=== PATIENT | male | born 1955 | race Caucasian/White ===

== ENCOUNTER 2018-01-09 13:25 | Emergency (ER) | payer SELFPAY ==
[~2018-01-09] VITALS: Ht 193 cm; Wt 103.0 kg
[2018-01-09] MEDS ORDERED: ATIVAN1 MG PO (13:40)
[2018-01-09] MEDS ORDERED: GABAPENTIN300 MG PO (13:41)
== END 2018-01-09 13:49 | disposition home or self-care (01) ==
LOC: ED 13:25
DX: L97.529 Non-pressure chronic ulcer of other part of left foot with unspecified severity (principal); L97.519 Non-pressure chronic ulcer of other part of right foot with unspecified severity

== ENCOUNTER 2018-07-03 15:34 | Emergency (ER) | payer OTHER ==
[~2018-07-03] VITALS: Ht 193 cm; Wt 103.0 kg
[~2018-07-03 15:34] MED LIST: ATIVAN1 MG PO; GABAPENTIN300 MG PO
[2018-07-03] MEDS ORDERED: AUGMENTIN 875-1 EACH PO (15:52)
== END 2018-07-03 16:52 | disposition home or self-care (01) ==
LOC: ED 15:34
DX: L08.9 Local infection of the skin and subcutaneous tissue, unspecified (principal); F43.10 Post-traumatic stress disorder, unspecified; I10 Essential (primary) hypertension; E11.9 Type 2 diabetes mellitus without complications; Z88.5 Allergy status to narcotic agent; Z79.899 Other long term (current) drug therapy
CPT/HCPCS: 90471; 90715; 99283-25

== ENCOUNTER 2018-09-19 21:29 | Emergency (ER) | payer OTHER ==
[~2018-09-19] VITALS: Ht 193 cm; Wt 95.2 kg
[~2018-09-19 21:29] MED LIST changes: +AUGMENTIN 875-1 EACH PO
--- OUTSIDE RECORDS SUMMARY | 2018-09-19 21:32 | XMS ---
PreManage Notification: MATTY VITAL Security Stuntman Events No recent Security Events currently on file CRITERIA MET - [facility] CARE PROVIDERS G[facility]el Constantino [facility] Provider Current Health PHONE: [phone] [facility] Current Group PCP PHONE: Unknown Rosalind Sharp Mental Health Provider Current PHONE: [phone] Brant has no Care Guidelines for this patient. EAlistairD. VISIT COUNT (12 MO.) [address] [facility] TOTAL 3 NOTE: Visits indicate total known visits. ED/UCC VISIT TRACKING (12 MO.) 09/19/2018 21:30 [facility] TYPE: Emergency COMPLAINT: - SYNCOPE 07/03/2018 15:35 [facility] TYPE: Emergency COMPLAINT: - L FOOT POSS INFECTION DIAGNOSES: - Post-traumatic stress disorder, unspecified - Local infection of the skin and subcutaneous tissue, unspecified - Type 2 diabetes mellitus without complications - Other correction (current) drug therapy - Allergy status to narcotic agent status - Essential (primary) hypertension 01/09/2018 13:[address] [facility] [place] TYPE: Emergency COMPLAINT: - BILAT FOOT WOUND CHECK/MSE TO CLINIC DIAGNOSES: - Non-pressure chronic ulcer of other part of left foot with unspecified severity - Non-pressure chronic ulcer of other part of right foot with unspecified severity INPATIENT VISIT TRACKING (12 MO.) No inpatient visits to display in this time frame [email or web address]
[2018-09-19] MEDS ORDERED: CHLORPROMAZINE10 MG PO (22:45)
[2018-09-19] MEDS ORDERED: GLUCOPHAGE500 MG PO (22:45)
[2018-09-19] MEDS ORDERED: SERTRALINE HCL25 MG PO (23:00)
[2018-09-19] MEDS ORDERED: ASPIRIN81 MG PO (23:00)
[2018-09-19] MEDS ORDERED: METOPROLOL SUCC25 MG PO (23:01)
[2018-09-19] MEDS ORDERED: VICTOZA 2-0.6 MG/0.1 SUB-Q (23:02)
[2018-09-19] MEDS ORDERED: FOLIC ACID0.4 MG PO (23:02)
[2018-09-19] MEDS ORDERED: AMBIEN5 MG PO (23:03)
[2018-09-19] MEDS ORDERED: ATIVAN0.5 MG PO (23:03)
[2018-09-20] MEDS ORDERED: SERTRALINE HCL100 MG PO (01:57)
[2018-09-20] MEDS ORDERED: CHLORPROMAZINE25 MG PO (01:58)
[2018-09-20] MEDS ORDERED: CHLORPROMAZINE200 MG PO (01:59)
--- NOTE | 2018-09-20 07:56 | EKG ---
[facility] [address] [place] Espinoza [place] [address] Signed Atrial-sensed ventricular-paced rhythm Abnormal ECG No previous ECGs available Confirmed by DONALDO CHI MD ([id number] on 09/20/2018 7:56:00 AM Electronically Signed By: DONALDO CHI MD 09/20/18 0756 PATIENT NAME: MATTY VITAL Electrocardiogram DATE OF : 55 PHYSICIAN: DONALDO CHI MD REPORT #: [id number] REPORT IS CONFIDENTIAL AND NOT TO BE RELEASED WITHOUT AUTHORIZATION
== END 2018-09-20 01:34 | disposition home or self-care (01) ==
LOC: ED 21:29
DX: I95.1 Orthostatic hypotension (principal); F43.10 Post-traumatic stress disorder, unspecified; I10 Essential (primary) hypertension; E11.9 Type 2 diabetes mellitus without complications; Z88.5 Allergy status to narcotic agent; Z79.899 Other long term (current) drug therapy; Z79.84 Long term (current) use of oral hypoglycemic drugs; Z79.82 Long term (current) use of aspirin
CPT/HCPCS: 80053; 81001; 84484; 85025; 93005; 93010; 96360; 96361; 99284-25; J7030

== ENCOUNTER → 2019-03-12 | Emergency (ER) | payer OTHER ==
[~2019-03-12] MED LIST changes: +AMBIEN5 MG PO; +ASPIRIN81 MG PO; +ATIVAN0.5 MG PO; +CHLORPROMAZINE10 MG PO; +CHLORPROMAZINE200 MG PO; +CHLORPROMAZINE25 MG PO; +FOLIC ACID0.4 MG PO; +GLUCOPHAGE500 MG PO; +KEFLEX500 MG PO; +METOPROLOL SUCC25 MG PO; +SERTRALINE HCL100 MG PO; +SERTRALINE HCL25 MG PO; +VICTOZA 2-0.6 MG/0.1 SUB-Q
--- OUTSIDE RECORDS SUMMARY | 2019-03-12 11:16 | XMS ---
PreManage Notification: MATTY VITAL Security Account Officer Events No recent Security Events currently on file CRITERIA MET - [facility] [place] - PDMP CARE PROVIDERS Huseyin Mcguire [facility] 09/21/2018-Current PHONE: Unknown Gricel Constantino Behavioral Mental Health Provider Current Health PHONE: [phone] [facility] Current Group PCP PHONE: Unknown Rosalind Sharp Mental Health Provider Current PHONE: [phone] Guidelines Source: [employer] [place] Guidelines Date: 09/20/2018 Care Coordination: Currently receives services from [employer]\T\#39;s.\T\nbsp; Please contact with any mental health concerns.\T\nbsp; Care History Medical/Surgical 09/21/2018 [facility] - Patient is currently established with [facility]. If patient is seen in the ED during business hours. Please contact CHWs at [facility]. Care Recommendation: This patient has had 5 or more Emergency Department visits in the last 12 months.\T\nbsp; Patient requires education on the scope and purpose of the ED as an acute care provider not a Primary Care Provider and should not be utilized for chronic conditions.\T\nbsp; These are guidelines and the provider should exercise clinical judgment when providing care. E.D. VISIT COUNT (12 MO.) 3 [facility]. TOTAL 3 NOTE: Visits indicate total known visits. ED/UCC VISIT TRACKING (12 MO.) 03/12/2019 11:14 [facility] TYPE: Emergency COMPLAINT: - LT GREAT TOE INFECTION 09/19/2018 21:30 [facility] TYPE: Emergency COMPLAINT: - SYNCOPE DIAGNOSES: - MCC (current) use of aspirin - Essential (primary) hypertension - Orthostatic hypotension - Dizziness and giddiness - Allergy status to narcotic agent status - Type 2 diabetes mellitus without complications - Other intermediate project manager (current) drug therapy - buttermaker continuous churn (current) use of oral hypoglycemic drugs - Post-traumatic stress disorder, unspecified 07/03/2018 15:35 [facility] TYPE: Emergency COMPLAINT: - L FOOT POSS INFECTION DIAGNOSES: - Post-traumatic stress disorder, unspecified - Local infection of the skin and subcutaneous tissue, unspecified - Type 2 diabetes mellitus without complications - Other half-way (current) drug therapy - Allergy status to narcotic agent status - Essential (primary) hypertension INPATIENT VISIT TRACKING (12 MO.) No inpatient visits to display in this time frame [email or web address]
== END ==
LOC: ED 11:13
DX: L08.9 Local infection of the skin and subcutaneous tissue, unspecified (principal)

== ENCOUNTER 2019-03-13 08:39 | Emergency (ER) | payer OTHER ==
[~2019-03-13] VITALS: Ht 193 cm; Wt 95.2 kg
[~2019-03-13 08:39] MED LIST changes: -KEFLEX500 MG PO
[2019-03-13] MEDS ORDERED: KEFLEX500 MG PO (11:32)
--- OUTSIDE RECORDS SUMMARY | 2019-03-13 11:46 | XMS ---
PreManage Notification: MATTY VITAL Security Telex Operator Events No recent Security Events currently on file CRITERIA MET - PDMP CARE PROVIDERS NICOLE GARCÍA Nurse Practitioner: Family 03/13/2019-Current PHONE: Unknown Huseyin Mcguire [facility] 09/21/2018-Current PHONE: Unknown Gricel Constantino Behavioral Mental Health Provider Current Health PHONE: [phone] [facility] Current Group PCP PHONE: Unknown Rosalind Sharp Mental Health Provider Current PHONE: [phone] Guidelines Source: [employer] [facility] [place] Guidelines Date: 09/20/2018 Care Coordination: Currently receives services from [employer]\T\#39;s.\T\nbsp; Please contact with any mental health concerns.\T\nbsp; Care History Medical/Surgical 09/21/2018 [facility] - Patient is currently established with [facility]. If patient is seen in the ED during business hours. Please contact CHWs at [facility]. Care Recommendation: This patient has had 5 [...] providing care. E.D. VISIT COUNT (12 MO.) 4 [facility]. TOTAL 4 NOTE: Visits indicate total known visits. ED/UCC VISIT TRACKING (12 MO.) 03/13/2019 08:40 [facility] TYPE: Emergency COMPLAINT: - BLOOD SUGAR PROBLEM, POSS INFECTION IN LEFT FOOT 03/12/2019 11:14 [facility] TYPE: Emergency COMPLAINT: - LT GREAT TOE INFECTION 09/19/2018 21:30 [facility] TYPE: Emergency COMPLAINT: - SYNCOPE DIAGNOSES: - FDC (current) use of aspirin - Essential (primary) hypertension - Orthostatic hypotension - Dizziness and giddiness - Allergy status to narcotic agent status - Type 2 diabetes mellitus without complications - Other baggage and mail agent (current) drug therapy - containers sales representative (current) use of oral hypoglycemic drugs - Post-traumatic stress disorder, unspecified 07/03/2018 15:[address] [facility] [place] TYPE: Emergency COMPLAINT: - L FOOT POSS INFECTION DIAGNOSES: - Post-traumatic stress disorder, unspecified - Local infection of the skin and subcutaneous tissue, unspecified - Type 2 diabetes mellitus without complications - Other fci (current) drug therapy - Allergy status to narcotic agent status - Essential (primary) hypertension INPATIENT VISIT TRACKING (12 MO.) No inpatient visits to display in this time frame [email or web address]
== END 2019-03-13 11:43 | disposition home or self-care (01) ==
LOC: ED 08:39
DX: L03.116 Cellulitis of left lower limb (principal); E11.65 Type 2 diabetes mellitus with hyperglycemia; F43.10 Post-traumatic stress disorder, unspecified; I10 Essential (primary) hypertension; Z88.5 Allergy status to narcotic agent; Z79.899 Other long term (current) drug therapy; Z79.84 Long term (current) use of oral hypoglycemic drugs; Z79.82 Long term (current) use of aspirin
CPT/HCPCS: 73630; 80053; 85025; 99283; J0696